=== PATIENT | male | born 1990 | race African-American/Black ===

== ENCOUNTER 2019-12-06 13:49 | Emergency (ER) | payer OTHER, SELFPAY ==
[2019-12-06 14:04] VITALS: BP 135/79; PULSE 77; RESP 16; TEMP 36.6; O2SAT 99
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
== END 2019-12-06 14:47 | disposition home or self-care (01) ==
PROVIDERS: Emergency Provider Nurse Practitioner
DX: M25.511 Pain in right shoulder (principal)
CPT/HCPCS: 99213; G0463

== ENCOUNTER 2020-10-09 00:22 | Emergency (ER) | payer OTHER, SELFPAY ==
[2020-10-09 00:26] VITALS: BP 123/76; PULSE 84; RESP 16; TEMP 37; O2SAT 98
== END 2020-10-09 02:40 | disposition left against medical advice (07) ==
LOC: ANHED 02:21
DX: S01.511A Laceration without foreign body of lip, initial encounter (principal)
CPT/HCPCS: 99199